=== PATIENT | male | born 1940 ===

== ENCOUNTER 2018-06-21 15:26 | Emergency (ER) | payer SELFPAY ==
[2018-06-21 15:26] VITALS: BMI 26.5
[2018-06-21] MEDS ORDERED: Iohexol 240 (50 ml) PO ONE (16:46)
[2018-06-21] MEDS ORDERED: Morphine 4 MG/ML VIAL IVP ONE (16:49)
[2018-06-21] MEDS ORDERED: Iohexol 240 (50 ml) ONE (17:04)
[2018-06-21] MEDS ORDERED: Morphine 4 MG/ML VIAL ONE (17:05)
--- NOTE | 2018-06-21 17:12 | ED PDOC ---
HPI: Abdomen Time Seen by Provider: 06/21/18 16:16 Chief Complaint (Nursing): Abdominal Pain Chief Complaint (Provider): groin pain History Per: Patient History/Exam Limitations: no limitations Associated Symptoms: denies: Fever, Chills Last Bowel Movement: Today Additional Complaint(s): 77 y/o M hx of CAD s/p CABG, HTN, HL, DM who was sent from [facility] for evaluation of possible strangulated hernia. Pt states that he has been having Right sided groin pain for the past few weeks, worse with walking and coughing. The pain has been progressing to the point of barely being able to walk. He has had a cough for the past few weeks, dry cough with some nasal congestion. Denies body aches, sore throat, SOB, dizziness, palpitations, diarrhea, N/V. Past Medical History Reviewed: Historical Data, Nursing Documentation, Vital Signs Vital Signs: Last Vital Signs Temp 98.5 F 06/21/18 15:50 Pulse 73 06/21/18 15:50 Resp 16 06/21/18 15:50 BP 148/88 06/21/18 15:50 Pulse Ox 98 06/21/18 15:50 - Medical History PMH: CAD, Diabetes, HTN, Hypercholesterolemia, Peripheral Edema Denies: Chronic Kidney Disease - Surgical History Surgical History: CABG, Coronary Stent Denies: Pacemaker - Family History Family History: States: Unknown Family Hx - Home Medications Home Medications: Ambulatory Orders Medication Instructions Recorded Aspirin [Ecotrin] 81 mg PO DAILY 05/27/16 Atorvastatin [Lipitor] 40 mg PO DAILY 05/27/16 Clopidogrel [Plavix] 75 mg PO DAILY 05/27/16 GlipiZIDE [Glucotrol] 5 mg PO DAILY 05/27/16 Losartan [Cozaar] 100 mg PO DAILY 05/27/16 Nitroglycerin [Nitrostat] 0.4 mg SL Q5MIN PRN 05/27/16 Metoprolol Tartrate [Lopressor] 100 mg PO Q12 #60 tab 06/02/16 amLODIPine [Norvasc] 10 mg PO DAILY #30 tab 06/02/16 - Allergies Allergies/Adverse Reactions: Allergies Allergy/AdvReac Type Severity Reaction Status Date / Time No Known Allergies Allergy Verified 06/21/18 15:50 Physical Exam - Reviewed Nursing Documentation Reviewed: Yes Vital Signs Reviewed: Yes - Physical Exam Appears: Positive for: Non-toxic Head Exam: Positive for: ATRAUMATIC ENT: Positive for: Normal ENT Inspection Cardiovascular/Chest: Positive for: Regular Rate, Rhythm, Murmur (III/ GELA heard best at LSB ) Respiratory: Positive for: Normal Breath Sounds - Laboratory Results Result Diagrams: 06/21/18 17:18 06/21/18 17:18 - ECG O2 Sat by Pulse Oximetry: 98 Medical Decision Making Medical Decision Making: CBC, CMP CT abd/pelvis w/ PO contrast 19:43 Abdomen/Pelvis CT FINDINGS: LUNG BASES: A small focal opacity which may represent pneumonic consolidation,and associated trace pleural effusion are seen in the posterior left lung base. Additionally, in the postero-lateral left lung base, there is partially calcified thickened partial pleural rind. This ranged in density between 34.5-35.6 HU. This is most consistent with an empyema/abscess. However aspiration/tissue sampling could be considered. LIVER: There is mild hepatomegaly. The liver measured approximately 17.2 cm in the midclavicular line. GALLBLADDER AND BILE DUCTS: The gallbladder appears within normal limits. No radioopaque gallstones are seen. No biliary ductal dilatation is evident. PANCREAS: Unremarkable. SPLEEN: Unremarkable. ADRENAL GLANDS: Unremarkable. KIDNEYS, URETERS, AND BLADDER: A 2.6 mm non-obstructing calculus is seen in the anteromedial upper-mid right renal pole. An approximately 7.3 x 6.0 mm partially obstructing calculus is i dentified within the proximal one third portion of the right ureter. Minimal associated right hydronephrosis/hydroureter are present. A 1.0 cm cortical cyst arises from the anteromedial upper right renal cortex. The urinary bladder is normal in size and configuration. STOMACH AND BOWEL: Unremarkable appearance of the stomach and bowel. No evidence of bowel obstruction. No evidence suggesting enteritis or colitis. There is no identification of incarcerated or strangulated ventral hernia. APPENDIX: No evidence of acute appendicitis on CT examination. PERITONEUM: No free fluid. No free air. Small bilateral inguinal hernias are present which each contain fat. LYMPH NODES: No lymphadenopathy is evident. REPRODUCTIVE: The seminal vesicles are normal and symmetrical in size. There is mild prostatic hypertrophy. The prostate gland measured approximately 5.5 cm transversely. Bilateral scrotal hydroceles are identified; which greater in size on the left. VASCULATURE: No evidence of abdominal aortic aneurysm. Extensive atherosclerotic vascular plaquing is present. BONES: No aggressive appearing osseous lesion. No acute osseous pathology evident. IMPRESSION: 1. No identification of incarcerated/strangulated ventral hernia. 2. Partial thickened pleural rind in the posterio-lateral left lung base with some calcification. This is most consistent with an empyema/abscess. However aspiration/tissue sampling could be considered. 3. Minimal pneumonic consolidation in the posterior left lung base as described above. 4. Mild hepatomegaly. Measurement is given above. 5. 7.3 x 6.0 mm partially obstructing calculus in the proximal right ureter. Associated minimal right hydroureter/hydronephrosis. 6. Mild prostatic hypertrophy. Measurement is given above. 7. Bilateral scrotal hydroceles, greater in size on the left. 8. Small bilateral inguinal hernias which each contain fat. 9. Extensive atherosclerotic vascular plaquing. CT chest w/ contrast ordered to further evaluate ?empyema/abscess noted on abd/pelvis CT. CXR: appears unchanged from prior CXR in 2017. Pt c/o pain. Toradol 30mg IV x 1 ordered. Patient endorsed to MAD[facility] miramontes CT chest w/ IV contrast. Disposition - Clinical Impression Clinical Impression: Inguinal hernia - Patient ED Disposition Is Patient to be Admitted: Transfer of Care (MADISON Coppola) Counseled Patient/Family Regarding: Studies Performed, Diagnosis, Need For Followup - Disposition Disposition: Transfer of Care Disposition Time: 20:42 Condition: FAIR Forms: [employer] (Thai)
[2018-06-21 17:28] LABS: BASO % 0.4 % (0.0-2.0); EOS # 0.1 K/uL (0.0-0.7); EOS % 2.2 % (0.0-4.0); LYMPH # 2.2 K/uL (1.0-4.3); LYMPH % 33.9 % (20.0-40.0); MEAN CELL VOLUME 85.4 fl (80.0-94.0); MEAN CORPUSCULAR HEMOGLOBIN 28.6 pg (27.0-31.0); MEAN CORPUSCULAR HGB CONC 33.5 g/dL (33.0-37.0); MONO # 0.4 K/uL (0.0-0.8); MONO % 6.3 % (0.0-10.0); NEUT # 3.7 K/uL (1.8-7.0); NEUT % 57.2 % (50.0-75.0); NRBC % 0.1 % (0.0-0.0); RBC 4.21 Mil/uL (4.40-5.90); RED CELL DISTRIBUTION WIDTH 13.9 % (11.5-14.5); WHITE BLOOD COUNT 6.4 K/uL (4.8-10.8)
[2018-06-21 17:41] LABS: ALB/GLOB RATIO 1.3 (1.0-2.1); ALBUMIN 4.2 g/dL (3.5-5.0); ALT/SGPT 32 U/L (21-72); AST/SGOT 28 U/L (17-59); BLOOD UREA NITROGEN 24 mg/dl (9-20); CALCIUM 9.6 mg/dL (8.4-10.2); GFR NON-AFRICAN AMERICAN > 60
[2018-06-21] MEDS ORDERED: Iohexol 300 100 ML IJ ONE (21:09)
[2018-06-21] MEDS ORDERED: Sodium Chloride 0.9% 50 ML IV ONE (21:09)
--- NOTE | 2018-06-21 21:33 | ED PDOC ---
- Laboratory Results Result Diagrams: 06/21/18 17:18 06/21/18 17:18 Lab Results: Total Bilirubin 0.5 mg/dl (0.2-1.3) 06/21/18 17:18 AST 28 U/L (17-59) 06/21/18 17:18 ALT 32 U/L (21-72) 06/21/18 17:18 Alkaline Phosphatase 96 U/L (38-126) 06/21/18 17:18 Total Protein 7.4 G/DL (6.3-8.2) 06/21/18 17:18 Albumin 4.2 g/dL (3.5-5.0) 06/21/18 17:18 Globulin 3.2 gm/dL (2.2-3.9) 06/21/18 17:18 Albumin/Globulin Ratio 1.3 (1.0-2.1) 06/21/18 17:18 - ECG O2 Sat by Pulse Oximetry: 98 - Progress ED Course And Treament: 2100 Signed out to me pending CT chest. 2104 On my initial evaluation, pt. reports having a cough with runny nose x 3 days without fever. Also reports he was informed by the clinic that he has a "ball of fluid" on the L side of the lung and was told that he does not require any surgery for it. 2320 Levaquin 500mg IV ordered. Pt and family informed of results. Advised to f/u with clinic for further evaluation but is to return to ED immediately without fail. Medical Decision Making Medical Decision Makin:09 CT Abd Pelvis COMMENTS: Status post median sternotomy and CABG. Heart is moderately enlarged. There is a large complex pleural-based collection present in the left lung base with split pleural sign and scattered calcification, most consistent with chronic empyema. It measures approximately 14 x 4.5 cm. There is adjacent area of consolidation present measuring approximately 4.5 x 2.5 cm, may represent rounded atelectasis, nevertheless consider short-term follow up study to exclude other possibilities such as malignancy. Scarring is seen in the right middle lobe and lingula as well as both lung bases. There is no evidence of pleural or parenchymal mass. There are no pleural effusions. There is no evidence of hilar or mediastinal lymphadenopathy. The visualized portions of the liver are of uniform attenuation without mass or defect. There is no intra or extrahepatic biliary ductal dilatation. The spleen is unremarkable. The visualized pancreas is of normal contour and attenuation characteristics. There is no evidence of adrenal mass. Partially- visualized kidneys are markedly lobulated and demonstrate areas of cortical thinning and scarring. There are small bilateral cortical cysts present. The bony structures are free of lytic or blastic lesions. Post contrast images demonstrate no evidence for abnormal enhancement. IMPRESSION: 1. Status post median sternotomy and CABG. 2. Moderate cardiomegaly. 3. Chronic empyema with adjacent area of consolidation measuring approximately 4.5 x 2.5 cm, may represent rounded atelectasis, nevertheless consider short- term follow up study to exclude other possibilities such as malignancy. 4. Scarring in the right middle lobe and lingula as well as both lung bases. 5. Markedly lobulated kidneys with areas of cortical thinning and scarring. 6. Small bilateral cortical cysts. Disposition - Clinical Impression Clinical Impression: Inguinal hernia, Chronic emphysema syndrome, Pneumonia - POA Present On Arrival: None - Disposition Referrals: [facility] [Outside] Disposition: Routine/Home Disposition Time: 23:26 Condition: IMPROVED Additional Instructions: FOLLOW UP WITH [facility] OR DR. CHAVEZ FOR FURTHER EVALUATION RETURN TO ED IMMEDIATELY IF SYMPTOMS WORSEN FARSHAD MURRAY, thank you for letting us take care of you today. Your provider was Daniel Lucas MD and you were treated for ABD PAIN. The emergency medical care you received today was directed at your acute symptoms. If you were prescribed any medication, please fill it and take as directed. It may take several days for your symptoms to resolve. Return to the Emergency Department if your symptoms worsen, do not improve, or if you have any other problems. Please contact your doctor or call one of the physicians/clinics you have been referred to that are listed on the Patient Visit Information form that is included in your discharge packet. Bring any paperwork you were given at discharge with you along with any medications you are taking to your follow up visit. Our treatment cannot replace ongoing medical care by a primary care provider outside of the emergency department. [facility] today. If you had an X-Ray or CT scan: A Radiologist will review the ED reading if any change in treatment is needed we will contact you. If you had a blood, urine, or wound culture: It will take several days for the results, if any change in treatment is needed we will contact you. If you had an STI test: It will take 48 hours for the results. Please call after 1 week if you have not heard back. Prescriptions: Benzonatate [Tessalon Perle] 100 mg PO Q8 PRN #10 capsule PRN Reason: Cough Levofloxacin [Levaquin] 500 mg PO DAILY #6 tablet Instructions: Community-Acquired Pneumonia, Adult (DC), Inguinal and Femoral (Groin) Hernias Forms: [employer] (Khmer) Print Language: SIERRA LEONEAN
[2018-06-21 22:31] LABS: URINE BILIRUBIN NEGATIVE (NEGATIVE); URINE BLOOD SMALL (NEGATIVE); URINE CLARITY CLEAR (Clear); URINE COLOR STRAW (YELLOW); URINE GLUCOSE (UA) NEG (NEGATIVE); URINE LEUKOCYTE ESTERASE NEG Leu/uL (Negative); URINE PROTEIN NEGATIVE (NEGATIVE); URINE UROBILINOGEN 0.2-1.0 mg/dL (0.2-1.0)
[2018-06-21] MEDS ORDERED: levoFLOXacin 500 mg in D5W 500 MG/100 ML BAG IVPB STA (23:18)
[2018-06-21 23:22] VITALS: BP 143/76; PULSE 63; RESP 18; TEMP 98.3
[2018-06-21 23:26] VITALS: O2SAT 98
[2018-06-21] MEDS ORDERED: levoFLOXacin 500 mg in D5W 500 MG/100 ML BAG IVPB ONE (23:38)
--- NOTE | 2018-06-22 11:00 | CT ---
Date of service: 06/21/2018 PROCEDURE: CT Chest with contrast HISTORY: Questionable empyema noted on abdominal CT scan. COMPARISON: Comparison made with CT scan 06/21/2018. TECHNIQUE: Contiguous axial images were obtained through the chest with intravenous contrast enhancement. Sagittal and coronal reconstructions were performed. IV contrast: 90 cc Omnipaque 300 Radiation dose: The the Total exam DLP = 363.18 mGy-cm. This CT exam was performed using one or more of the following dose reduction techniques: Automated exposure control, adjustment of the mA and/or kV according to patient size, and/or use of iterative reconstruction technique. FINDINGS: LUNGS: Redemonstrated is an crescentic shaped proteinaceous heterogeneous fluid collection with what appears represent internal calcifications and peripheral thick-walled rind of enhancement located in the left posterior and lateral sulcus of the lung. Findings consistent with loculated effusion possibly empyema and likely related to prior however possibility of an underlying neoplastic process cannot be completely excluded. Recommend clinical correlation. There also associated mild left basilar atelectasis. Minimal linear scarring seen in the lingular and middle lobe regions as well. Mild left apical pleural thickening and parenchymal scarring. MEDIASTINUM: Heart size is mildly enlarged. No significant pericardial effusion.. Sternotomy wires and in situ aortic valve replacement.. The ascending thoracic aorta measures approximately the 3.3 cm and descending thoracic aorta measures approximately 2.7 cm. Minor aortic partially calcified atherosclerotic plaque changes. The pulmonary trunk measures approximately 2.4 cm. No significant mediastinal or hilar adenopathy. Trachea midline and patent with no large central endoluminal lesions. There is a small hiatal hernia. PLEURA: As above. No evidence of pneumothorax. BONES: Multilevel degenerative spondylosis of the thoracic spine. There are no acute compression fractures nor retropulsed fragments. UPPER ABDOMEN: Probable exophytic cystic foci upper pole right kidney. OTHER FINDINGS: None. IMPRESSION: There is a crescentic shaped heterogeneous likely proteinaceous loculated effusion and/or empyema which contains what appear to be internal calcifications and peripheral thick wall rind of enhancement in the left posterior and lateral sulcus. Findings likely related to prior however possibility of an underlying neoplastic process cannot be completely excluded. Recommend clinical correlation. There is mild atelectasis and or scarring changes left base. Cardiomegaly. Aortic valve replacement.
--- NOTE | 2018-06-22 13:10 | RAD ---
Date of service: 06/21/2018 HISTORY: Shortness of breath and cough. COMPARISON: Correlation made with prior chest radiograph 05/27/[address] scan chest TECHNIQUE: Chest PA and lateral FINDINGS: LUNGS: Opaque density in the left lung base consistent with loculated effusion and/or empyema seen to better advantage on CT scan. Associated left basilar atelectasis also seen to much better advantage on prior CT scan of the chest. PLEURA: As above. No evidence of pneumothorax CARDIOVASCULAR: . Mild aortic atherosclerotic calcification present. Heart remains mildly enlarged. Sternotomy wires and aortic valve replacement OSSEOUS STRUCTURES: No significant abnormalities. VISUALIZED UPPER ABDOMEN: Normal. OTHER FINDINGS: None. IMPRESSION: Opaque density in the left lung base consistent with loculated effusion and/or empyema seen to better advantage on CT scan. Associated left basilar atelectasis also seen to much better advantage on prior CT scan of the chest.
--- NOTE | 2018-06-22 14:28 | CT ---
Date of service: 06/21/2018 PROCEDURE: CT Abdomen and Pelvis with contrast HISTORY: evaluate for strangulated hernia COMPARISON: 05/28/2016 CT abdomen pelvis includes lower thorax. June 21, 2018. CT thorax TECHNIQUE: Oral contrast only. Radiation dose: Total exam DLP = 608.09 mGy-cm. This CT exam was performed using one or more of the following dose reduction techniques: Automated exposure control, adjustment of the mA and/or kV according to patient size, and/or use of iterative reconstruction technique. FINDINGS: LOWER THORAX: Complex, partially loculated pleural effusion. Thick rind of pleural based fluid. Calcifications within the fluid suggest talc pleurodesis as an etiology. Pleural disease was apparent on the prior CT of the abdomen and pelvis including lower thorax 05/28/2016. Findings are without interval change. LIVER: Unremarkable. No gross lesion or ductal dilatation. GALLBLADDER AND BILE DUCTS: Unremarkable. PANCREAS: Unremarkable. No gross lesion or ductal dilatation. SPLEEN: Unremarkable. ADRENALS: Unremarkable. No mass. KIDNEYS AND URETERS: 6 mm proximal right ureteral calculus. Less than expected distention of the right collecting system. Cortical irregularity bilaterally consistent with scarring perhaps related to prior infectious processes. Redemonstration of simple cyst right lower pole 1.6 cm. Finding identified on prior abdominal ultrasound performed 02/24/2016. VASCULATURE: Unremarkable. No aortic aneurysm. Atherosclerotic calcification and mural plaque present. Findings are seen throughout the aorta BOWEL: Unremarkable. No obstruction. No gross mural thickening. APPENDIX: No abnormalities to suggest acute appendicitis. No right lower quadrant inflammatory processes identified. PERITONEUM: Unremarkable. No free fluid. No free air. LYMPH NODES: Unremarkable. No enlarged lymph nodes. BLADDER: 1 mm calculus imbedded in the wall of the urinary bladder. No suspicious bladder wall abnormalities or intramural findings. REPRODUCTIVE: Bilateral hydroceles incompletely visualized left larger than right. Similar findings identified on a prior cystic or ultrasound 08/02/2017. BONES: No acute fracture. OTHER FINDINGS: None. IMPRESSION: 6 mm calculus mid right ureter with mild distention of the right collecting system and ureter proximal to the calcification. Additional benign and/or incidental findings described above. Concordant findings (preliminary report) provided by [employer].
== END 2018-06-22 01:10 | disposition home or self-care (01) ==
LOC: H.ER 15:26
DX: K40.90 Unilateral inguinal hernia, without obstruction or gangrene, not specified as recurrent (principal); J18.9 Pneumonia, unspecified organism; J43.9 Emphysema, unspecified; I10 Essential (primary) hypertension; I25.10 Atherosclerotic heart disease of native coronary artery without angina pectoris; Z79.84 Long term (current) use of oral hypoglycemic drugs; Z95.1 Presence of aortocoronary bypass graft; Z95.2 Presence of prosthetic heart valve; Z95.5 Presence of coronary angioplasty implant and graft
CPT/HCPCS: 71046; 71260; 74176; 80053; 81003; 85025; 87804; 96374; 96375; 99283; J1885; J2270; Q9966; Q9967